=== PATIENT | female | born 1970 | race Caucasian/White ===

== ENCOUNTER 2018-06-14 11:39 | Emergency (ER) | payer OTHER, MEDICAID ==
[~2018-06-14] VITALS: Ht 165.1 cm; Wt 92.4 kg
[~2018-06-14 11:39] MED LIST: ALLOPURINOL300 MG PO; AMBIEN5 MG PO; AMOXICILLIN500 MG PO; BACTRIM DS1 TAB PO; BICILLIN L1.2 MU/SYR IM; CIPRO500 MG OR; CIPRO500 MG PO; CIPROFLOXACN500 MG PO; CLARITHROMYC500 MG PO; DIFLUCAN100 MG PO; DIFLUCAN150 MG OR; DILAUDID 2MG2 MG/TA1 PO; HYDROCHLORO25 MG/TAB PO; HYDROCO/APAP1 TA9 PO; JANUVIA100 MG PO; KLOR-CON20 MEQ PO; LISINOPRIL10 MG PO; LISINOPRIL5 MG PO; LORTAB 5 OR; MEDDOSEPAK OR; METFORMIN1000 MG PO; METFORMIN500 M1 OR; METFORMIN500 M1 PO; METFORMIN500 MG PO; NEXIUM40 M1 PO; TENORMIN25 MG OR; TENORMIN25 MG PO; TRAMADOL HCL50 MG PO; ULTRAM50 M1 PO; VALIUM2 MG PO; VESICARE10 MG PO; WELLBUTRIN SR150 MG PO; ZIAC 55 MG PO; ZOFRAN ODT4 MG PO
[2018-06-14 12:32] LABS: HEMATOCRIT 36.7 % (37.0-47.0); HEMOGLOBIN 12.1 g/dl (12.0-16.0); IMMATURE GRANULOCYTES 0.4 % (0.0-5.0); MEAN CELL VOLUME 88.2 fL CALC (80.0-100.0); MEAN CORPUSCULAR HGB 29.1 pG CALC (26.0-32.0); NEUT# 12.12 thou/uL (2.00-7.15); RED BLOOD COUNT 4.16 mill/uL (4.20-5.60); RED CELL DISTRI WIDTH 15.1 % (11.5-15.5)
[2018-06-14] MEDS ORDERED: CARVEDILOL6.25 MG PO (12:46)
[2018-06-14 12:47] LABS: ALKALINE PHOSPHATASE 74 u/l (38-126); AMYLASE 54 u/l (30-110); ANION GAP 16 (6-22 (CALC)); BILIRUBIN, TOTAL 0.7 mg/dL (0.0-1.4); BUN 10 mg/dL (7-17); BUN/CREATININE RATIO 24 (12-20 (CALC)); CARBON DIOXIDE 28 mmol/l (22-30); CHLORIDE 97 mmol/l (95-108); CREATININE 0.4 mg/dL (0.5-1.0); GFR > 60 ML/MIN (>=60 (CALC)); GFR FOR AFR.AMER. > 60 ML/MIN (>=60 (CALC)); LIPASE 35 u/l (23-300); POTASSIUM 3.6 mmol/l (3.5-5.1); SGOT/AST 26 u/l (14-36); SODIUM 137 mmol/l (137-146); TOTAL PROTEIN 7.5 g/dL (6.3-8.2)
[2018-06-14] MEDS ORDERED: NEXIUM40 M1 PO (13:52)
[2018-06-14] MEDS ORDERED: ZOFRAN8 MG PO (13:52)
[2018-06-14] MEDS ORDERED: CARAFATE1 GM/10 M1 PO (13:52)
[2018-06-14 13:57] VITALS: BP 119/73
== END 2018-06-14 14:26 | disposition home or self-care (01) | DRG 392 ==
LOC: ED 11:39
PROVIDERS: Emergency Medicine
DX: K29.00 Acute gastritis without bleeding (principal); E11.9 Type 2 diabetes mellitus without complications; Z87.442 Personal history of urinary calculi

== ENCOUNTER → 2018-09-05 | Outpatient (REF) | payer OTHER, MEDICAID ==
[~2018-09-05] MED LIST changes: +CARAFATE1 GM/10 M1 PO; +CARVEDILOL6.25 MG PO; +CELEBREX200 MG PO; +LISINOPRIL30 MG PO; +OZEMPIC2 MG/1.5 M IJ; +ZANTAC 75 PO; +ZOFRAN8 MG PO
[2018-09-05 09:38] VITALS: BP 95/71
== END | disposition home or self-care (01) | DRG 951 ==
LOC: PO 07:51 → ORM 08:00
PROVIDERS: ATTEND Surgery
DX: Z01.818 Encounter for other preprocedural examination (principal); N13.30 Unspecified hydronephrosis; R11.2 Nausea with vomiting, unspecified; K59.00 Constipation, unspecified; E11.9 Type 2 diabetes mellitus without complications; I10 Essential (primary) hypertension; K21.9 Gastro-esophageal reflux disease without esophagitis; Z90.49 Acquired absence of other specified parts of digestive tract; Z98.51 Tubal ligation status; Z98.890 Other specified postprocedural states; R14.0 Abdominal distension (gaseous); R00.0 Tachycardia, unspecified

== ENCOUNTER 2018-09-13 08:48 | Day surgery (SDC) | payer OTHER, MEDICAID ==
[~2018-09-13] VITALS: Ht 165.1 cm; Wt 85.7 kg
[2018-09-13 11:23] VITALS: BP 121/91
== END 2018-09-13 11:35 | disposition home or self-care (01) | DRG 392 ==
LOC: ENDO 08:48 → ORM 10:15 → ENDO 10:35
PROVIDERS: ATTEND Surgery
PROC: 0DB78ZX Excision of Stomach, Pylorus, Via Natural or Artificial Opening Endoscopic, Diagnostic (ICD-10-PCS; principal; 2018-09-13)
PROC: 0DBP8ZX Excision of Rectum, Via Natural or Artificial Opening Endoscopic, Diagnostic (ICD-10-PCS; 2018-09-13)
PROC: 0DBK8ZX Excision of Ascending Colon, Via Natural or Artificial Opening Endoscopic, Diagnostic (ICD-10-PCS; 2018-09-13)
PROC: 0DBH8ZX Excision of Cecum, Via Natural or Artificial Opening Endoscopic, Diagnostic (ICD-10-PCS; 2018-09-13)
DX: K29.70 Gastritis, unspecified, without bleeding (principal); K50.10 Crohn's disease of large intestine without complications; K62.1 Rectal polyp

== ENCOUNTER 2018-09-24 19:55 | Observation (INO) | payer OTHER, MEDICAID ==
[~2018-09-24] VITALS: Ht 165.1 cm; Wt 84.5 kg
--- NOTE | 2018-09-24 20:10 | NUR ---
AMBULATED TO ROOM
--- NOTE | 2018-09-24 20:11 | NUR ---
PT. TO ROOM 10 WITH C/O ABD. PAIN FOR APPROX. 3-4 DAYS. ABD. SOFT WITH + BOWEL SOUNDS.
[2018-09-24] MEDS ORDERED: DOCUSATE CAL240 MG PO (21:23)
[2018-09-24 21:26] LABS: URINE BILIRUBIN - DIPSTICK NEGATIVE (NEGATIVE); URINE BLOOD DIPSTICK MODERATE (NEGATIVE); URINE COLOR YELLOW; URINE GLUCOSE - DIPSTICK NEGATIVE (NEGATIVE); URINE KETONE NEGATIVE (NEGATIVE); URINE LEUK ESTERASE NEGATIVE (NEGATIVE); URINE NITRITE - DIPSTICK NEGATIVE (Negative); URINE PH 5.5 (4.5-8.0); URINE PROTEIN - DIPSTICK NEGATIVE (NEG-TRACE); URINE UROBILINOGEN - DIPSTICK 0.2 E.U./dL (0.2)
[2018-09-24 21:27] LABS: URINE SQUAMOUS EPITHELIAL CELL FEW EPI/hpf (0-FEW)
[2018-09-24 21:30] LABS: ALBUMIN 4.4 g/dL (3.2-5.0); ALKALINE PHOSPHATASE 82 u/l (38-126); AMYLASE 49 u/l (30-110); ANION GAP 18 (6-22 (CALC)); BILIRUBIN, TOTAL 0.4 mg/dL (0.0-1.4); BUN 11 mg/dL (7-17); BUN/CREATININE RATIO 21 (12-20 (CALC)); CARBON DIOXIDE 27 mmol/l (22-30); CHLORIDE 98 mmol/l (95-108); CREATININE 0.5 mg/dL (0.5-1.0); GFR > 60 ML/MIN (>=60 (CALC)); GFR FOR AFR.AMER. > 60 ML/MIN (>=60 (CALC)); HEMATOCRIT 38.4 % (37.0-47.0); HEMOGLOBIN 12.7 g/dl (12.0-16.0); IMMATURE GRANULOCYTES 0.3 % (0.0-5.0); LIPASE 63 u/l (23-300); MEAN CELL VOLUME 89.3 fL CALC (80.0-100.0); MEAN CORPUSCULAR HGB 29.5 pG CALC (26.0-32.0); MEAN CORPUSCULAR HGB CONC 33.1 g/L CALC (32.0-36.0); NEUT# 8.5 thou/uL (2.00-7.15); POTASSIUM 3.7 mmol/l (3.5-5.1); RED BLOOD COUNT 4.3 mill/uL (4.20-5.60); RED CELL DISTRI WIDTH 14.5 % (11.5-15.5); SGOT/AST 20 u/l (14-36); SODIUM 139 mmol/l (137-146); TOTAL PROTEIN 7.5 g/dL (6.3-8.2)
--- NOTE | 2018-09-24 21:37 | NUR ---
IVF, IV PAIN MED, PO GI COCKTAIL AND IM ANTIEMETIC GIVEN PER MD ORDER.
--- NOTE | 2018-09-24 22:37 | NUR ---
RESTING ON STRETCHER, FAMILY AT SIDE. IVF INFISING WELL, NO REDNESS OR EDEMA NOTED.
--- NOTE | 2018-09-24 23:25 | NUR ---
PT. STATES HER ABD. PAIN IS NOW DECREASED TO A 5 ON A SCALE OF 1-10.
[2018-09-25] VITALS (7 sets, daily range): BP systolic 86–120; BP diastolic 59–80
--- NOTE | 2018-09-25 00:23 | NUR ---
IN ROOM TO DISCUSS CLINICAL FINDINGS WITH PT. VERBALIZED UNDERSTANDING.
--- NOTE | 2018-09-25 00:39 | NUR ---
MD MADE PT. AWARE OF ADMISSION, VERBALIZED UNDERSTANDING.
--- NOTE | 2018-09-25 00:46 | NUR ---
IV MED GIVEN PER MD ORDER.
--- NOTE | 2018-09-25 01:00 | NUR ---
PT. STATES HER ABD. PAIN IS NOW DECREASED TO A 3 ON A SCALE OF 1-10.
--- NOTE | 2018-09-25 01:03 | NUR ---
Admission Note Report Given to: BURT CHAVEZ Transported by: Wheelchair X Stretcher Transported with: X Nurse Transporter X Patent IV [id number] Senior Attorney
--- NOTE | 2018-09-25 01:05 | NUR ---
PT. TAKEN TO MS VIA STRETCHER, NO C/O.
--- NOTE | 2018-09-25 01:30 | NUR ---
PT. ARRIVED TO THE FLOOR VIA STRETCHER ACCOMPANIED BY ER NURSE @0109; PT. AMBULATORY AND STEADY GAIT; PT. VOIDED 400MLS OF CLEAR YELLOW URINE AND STRAINED AT THIS TIME; NO STONES NOTED; IV SITE PATENT AND ORDERED IVF HUNG; PT. REPORTS PAIN DOWN TO 4/10; EDUCATED ON PAIN MEDICATION FREQUENCIES AND VERBALIZES UNDERSTANDING; TEMP REASSESSED AND IS 99.8; WILL CONTINUE TO MONITOR; EDUCATED ON POC, CALL LIGHT USE, AND ROOM; VERBALIZES UNDERSTANDING; PT. DOES C/O SORE THROAT; NO REDNESS NOTED TO THROAT; INSTRUCTED PT. TO CALL FOR ANY NEEDS; CALL LIGHT IS IN REACH; WILL CONTINUE TO MONITOR.
--- NOTE | 2018-09-25 02:00 | NUR ---
NOTIFIED ER DOCTOR THAT PT. IS C/O SORE THROAT; ORDER RECEIVED TO OBTAIN STREP SWAB; WILL CARRY OUT ORDER;
--- NOTE | 2018-09-25 04:35 | NUR ---
0430-CALLED ED DR AND NOTIFIED HIM OF PT'S B/P BEING /; NEW ORDERS RECEIVED AND TO BE CARRIED OUT. 0435- NS 1,000 ML BOLUS HUNG AT THIS TIME FOR B/P ; WILL REASSESS POST BOLUS. PT. IS ASYMPTOMATIC.
[2018-09-25 05:32] LABS: HEMATOCRIT 34.6 % (37.0-47.0); HEMOGLOBIN 11.1 g/dl (12.0-16.0); IMMATURE GRANULOCYTES 0.5 % (0.0-5.0); MEAN CELL VOLUME 90.3 fL CALC (80.0-100.0); MEAN CORPUSCULAR HGB CONC 32.1 g/L CALC (32.0-36.0); NEUT# 7.65 thou/uL (2.00-7.15); RED BLOOD COUNT 3.83 mill/uL (4.20-5.60); RED CELL DISTRI WIDTH 14.4 % (11.5-15.5)
--- NOTE | 2018-09-25 05:45 | NUR ---
NOTIFIED DR. HERNANDEZ OF B/P NOW BEING 94/62 AND OF BEING TACHYCARDIC AT 104 AND LOW GRADE TEMP NOW OF 99.1, BUT WITH IT PREVIOUSLY BEING 100; ALSO THAT PT. IS C/O ABD PAIN; NEW ORDERS RECEIVED AND TO BE CARRIED OUT; WILL UPDATE PT. WITH POC.
--- NOTE | 2018-09-25 06:13 | NUR ---
SECOND BOLUS STARTED PER ORDER; ORDERED TORADOL GIVEN FOR RIGHT SIDED ABD PAIN 4/10; WILL REASSESS; CALL LIGHT IS IN REACH.
--- NOTE | 2018-09-25 07:00 | NUR ---
SHIFT CHANGE REPORT, PT SLEEPING BUT AROUSED TO VERVAL STIMULI, ORIENTED, C/O PAIN @ 2/10 TO RIGHT SIDE, IVF INFUSING, CALL LIN IN REACH.
--- NOTE | 2018-09-25 12:04 | NUR ---
RESTING SUPINE IN BED AWAITING FOR MD TO ROUND, ALL NEEDS MET/ADDRESSED.
--- NOTE | 2018-09-25 16:36 | NUR ---
TRANSPORTED OFF UNIT VIA W/C BY VOLUNTEER FOR PROCEDURE AND RETURNED TO UNIT, RESTING IN BED AT THIS TIME, ALL NEEDS ADDRESSED, FAMILY IN ROOM.
--- NOTE | 2018-09-25 19:00 | NUR ---
RECEIVED REPORT FROM DAY NURSE. PT RESTING IN BED WATCHING TV. PT C/O PAIN AT THIS TIME. CALL LIN IN REACH. WILL CONTINUE TO MONITOR.
--- NOTE | 2018-09-25 20:10 | NUR ---
PT RESTING IN BED WATCHING TV. PT C/O PAIN 4/10 MEDICATED PER ORDER. PT IN A&O x3. AMBULATES SELF TO RESTROOM. ASSESMENT COMPLETED AT THIS TIME. IV INFUSING WELL. NO OTHER NEEDS AT THIS TIME. CALL LIN IN REACH. WILL CONTINUE TO MONITOR.
--- NOTE | 2018-09-26 00:10 | NUR ---
PT C/O PAIN, MEDICATED PER ORDER.
--- NOTE | 2018-09-26 04:00 | NUR ---
PT RESTING QUIETLY IN BED. NO S/S OF DISTRESS NOTED. CALL LIN IN REACH. WILL CONTINUE TO MONITOR.
[2018-09-26 04:25] VITALS: BP 108/72
[2018-09-26 05:35] LABS: HEMOGLOBIN 9.8 g/dl (12.0-16.0); IMMATURE GRANULOCYTES 0.3 % (0.0-5.0); MEAN CELL VOLUME 91.7 fL CALC (80.0-100.0); MEAN CORPUSCULAR HGB CONC 31.6 g/L CALC (32.0-36.0); NEUT# 4.73 thou/uL (2.00-7.15); RED BLOOD COUNT 3.38 mill/uL (4.20-5.60); RED CELL DISTRI WIDTH 14.6 % (11.5-15.5)
[2018-09-26 06:01] LABS: ALKALINE PHOSPHATASE 63 u/l (38-126); ANION GAP 13 (6-22 (CALC)); BILIRUBIN, TOTAL 0.3 mg/dL (0.0-1.4); BUN 4 mg/dL (7-17); BUN/CREATININE RATIO 9 (12-20 (CALC)); CARBON DIOXIDE 26 mmol/l (22-30); CHLORIDE 107 mmol/l (95-108); CREATININE 0.5 mg/dL (0.5-1.0); GFR > 60 ML/MIN (>=60 (CALC)); GFR FOR AFR.AMER. > 60 ML/MIN (>=60 (CALC)); LIPASE 30 u/l (23-300); MAGNESIUM 1.4 mg/dL (1.6-2.3); POTASSIUM 3.2 mmol/l (3.5-5.1); SGOT/AST 17 u/l (14-36); SODIUM 142 mmol/l (137-146)
[2018-09-26 06:07] LABS: AMYLASE < 30 u/l (30-110)
[2018-09-26 06:08] LABS: TOTAL PROTEIN 5.5 g/dL (6.3-8.2)
--- NOTE | 2018-09-26 07:15 | NUR ---
PT REPORT RECIEVED FROM YAYA SMITH. PT SLEEPING. NO S/S OF DISTRESS. CALL LIGHT IN REACH. WILL CONTINUE TO MONITOR.
[2018-09-26 09:26] VITALS: BP 104/73
--- NOTE | 2018-09-26 09:26 | NUR ---
PT A/O X3. SPEECH IS CLEAR. RESP EVEN AND UNLABORED. LUNG SOUNDS CLEAR. PRODUCTIVE COUGH NOTED; YELLOWISH/BENJAMIN THICK SPUTUM. BOWEL SOUNDS ACTIVE X4. PT C/O RT SIDED ABDOMINAL TENDERNESS. STRONG RADIAL AND PEDAL PULSES. #20 RAC NS @125. SITE APPEARS HEALTHY. SKIN INTACT. PT DENIES ANY PAIN OR NEEDS. POC DISCUSSED. SAFETY PRECAUTIONS IN PLACE. CALL LIGHT IN REACH. WILL CONTINUE TO MONITOR.
--- NOTE | 2018-09-26 10:21 | NUR ---
PT TRANSPORTED TO ULTRASOUND VIA WC IN STABLE CONDITION; ACCOMPIANED BY VOLUNTEER
--- NOTE | 2018-09-26 10:50 | NUR ---
PT TRANSPORTED BACK FROM ULTRASOUND VIA WC ACCOMPIANED BY VOLUNTEER
[2018-09-26 10:56] VITALS: BP 112/80
--- NOTE | 2018-09-26 12:04 | NUR ---
PT RESTING IN BED. NO C/O PAIN OR NEEDS. IV FLUIDS INFUSING. CALL LIGHT IN REACH. WILL CONTINUE TO MONITOR.
--- NOTE | 2018-09-26 14:10 | NUR ---
D/C INSTRUCTIONS DISCUSSED W/ PT. PT STATES UNDERSTANDING. IV REMOVED. CATHETER INTACT. PT GETTING DRESSED. SPOUSE AT BEDSIDE
--- NOTE | 2018-09-26 14:25 | NUR ---
Discharge instructions given. Patient verbalizes understanding of same. Discharged in stable condition via Wheelchair to Home with spouse. All belongings sent with pt.
== END 2018-09-26 14:25 | disposition home or self-care (01) | DRG 392 ==
LOC: ED 19:55 → ED-I 09-25 00:28 → ED 09-25 00:47 → MS2 09-25 00:48
PROVIDERS: Emergency Medicine; ADMIT Internal Medicine Nephrology; ATTEND Internal Medicine Nephrology
DX: K29.00 Acute gastritis without bleeding (principal); N13.2 Hydronephrosis with renal and ureteral calculous obstruction; K29.50 Unspecified chronic gastritis without bleeding; E11.9 Type 2 diabetes mellitus without complications; I10 Essential (primary) hypertension; M19.90 Unspecified osteoarthritis, unspecified site; Z79.899 Other long term (current) drug therapy; Z90.49 Acquired absence of other specified parts of digestive tract
CPT/HCPCS: G0378; S0164

== ENCOUNTER 2019-07-27 | Emergency (ER) | payer OTHER ==
[~2019-07-27] MED LIST changes: +DOCUSATE CAL240 MG PO
[2019-07-27] MEDS ORDERED: ZESTRIL10 M1 PO (17:45)
[2019-07-27] MEDS ORDERED: ASPIRIN 81 LOW81 MG PO (17:46)
[2019-07-27] MEDS ORDERED: HYDROCHLOROT25 MG PO (17:47)
[2019-07-27] MEDS ORDERED: CARAFATE1 G1 PO (17:48)
[2019-07-27] MEDS ORDERED: MAGNESIUM200 M1 PO (17:48)
== END 2019-07-27 19:00 | disposition home or self-care (01) | DRG 918 ==
DX: T44.5X1A Poisoning by predominantly beta-adrenoreceptor agonists, accidental (unintentional), initial encounter (principal); R20.0 Anesthesia of skin; L98.8 Other specified disorders of the skin and subcutaneous tissue; E11.9 Type 2 diabetes mellitus without complications; Z79.84 Long term (current) use of oral hypoglycemic drugs

== ENCOUNTER 2020-11-15 12:21 | Emergency (ER) | payer OTHER, MEDICAID ==
[~2020-11-15] VITALS: Ht 165.1 cm; Wt 76.8 kg
[~2020-11-15 12:21] MED LIST changes: +ASPIRIN 81 LOW81 MG PO; +CARAFATE1 G1 PO; +HYDROCHLOROT25 MG PO; +MAGNESIUM200 M1 PO; +ZESTRIL10 M1 PO
[2020-11-15 12:46] VITALS: BP 133/71
[2020-11-15 12:57] LABS: HEMATOCRIT 37.5 % (37.0-47.0); HEMOGLOBIN 11.9 g/dl (12.0-16.0); IMMATURE GRANULOCYTES 0.3 % (0.0-5.0); MEAN CELL VOLUME 86.8 fL CALC (80.0-100.0); MEAN CORPUSCULAR HGB 27.5 pG CALC (26.0-32.0); MEAN CORPUSCULAR HGB CONC 31.7 g/dL CAL (32.0-36.0); NEUT# 5.89 thou/uL (2.00-7.15); RED BLOOD COUNT 4.32 mill/uL (4.20-5.60); RED CELL DISTRI WIDTH 14.5 % (11.5-15.5)
[2020-11-15 13:23] LABS: ALBUMIN 4.2 g/dL (3.2-5.0); ALKALINE PHOSPHATASE 77 u/l (38-126); AMYLASE 69 u/l (30-110); ANION GAP 15 (6-22 (CALC)); BILIRUBIN, TOTAL 0.3 mg/dL (0.0-1.4); BUN 14 mg/dL (7-17); BUN/CREATININE RATIO 22 (12-20 (CALC)); CARBON DIOXIDE 26 mmol/l (22-30); CHLORIDE 99 mmol/l (95-108); CREATININE 0.7 mg/dL (0.5-1.0); GFR > 60 ML/MIN (>=60 (CALC)); GFR FOR AFR.AMER. > 60 ML/MIN (>=60 (CALC)); LIPASE 66 u/l (23-300); POTASSIUM 3.5 mmol/l (3.5-5.1); SGOT/AST 25 u/l (14-36); SODIUM 137 mmol/l (137-146); TOTAL PROTEIN 7.4 g/dL (6.3-8.2)
[2020-11-15 14:30] LABS: URINE BILIRUBIN - DIPSTICK NEGATIVE (NEGATIVE); URINE BLOOD DIPSTICK NEGATIVE (NEGATIVE); URINE COLOR YELLOW; URINE GLUCOSE - DIPSTICK NEGATIVE (NEGATIVE); URINE KETONE NEGATIVE (NEGATIVE); URINE LEUK ESTERASE NEGATIVE (NEGATIVE); URINE PROTEIN - DIPSTICK NEGATIVE (NEG-TRACE); URINE UROBILINOGEN - DIPSTICK 0.2 E.U./dL (0.2)
[2020-11-15 14:39] LABS: URINE NITRITE - DIPSTICK NEGATIVE (Negative)
[2020-11-15] MEDS ORDERED: MIRALAX17 GM PO (15:38)
[2020-11-15] MEDS ORDERED: ONDANSETRON4 MG PO (15:38)
== END 2020-11-15 16:00 | disposition home or self-care (01) | DRG 392 ==
LOC: ED 12:21
PROVIDERS: Emergency Medicine
DX: K59.00 Constipation, unspecified (principal); E11.9 Type 2 diabetes mellitus without complications; Z79.84 Long term (current) use of oral hypoglycemic drugs; Z87.442 Personal history of urinary calculi

== ENCOUNTER 2021-01-24 09:37 | Emergency (ER) | payer OTHER, MEDICAID ==
[~2021-01-24 09:37] MED LIST changes: +MIRALAX17 GM PO; +ONDANSETRON4 MG PO
[2021-01-24 12:12] VITALS: BP 112/70
== END 2021-01-24 12:23 | disposition home or self-care (01) | DRG 605 ==
LOC: ED 09:37
DX: S80.212A Abrasion, left knee, initial encounter (principal); M25.572 Pain in left ankle and joints of left foot; R04.0 Epistaxis; K13.79 Other lesions of oral mucosa; E11.9 Type 2 diabetes mellitus without complications; W01.0XXA Fall on same level from slipping, tripping and stumbling without subsequent striking against object, initial encounter; Y92.512 Supermarket, store or market as the place of occurrence of the external cause; Z79.84 Long term (current) use of oral hypoglycemic drugs

== ENCOUNTER 2021-01-28 17:46 | Emergency (ER) | payer OTHER, MEDICAID ==
[2021-01-28 21:30] VITALS: BP 123/79
== END 2021-01-28 21:30 | disposition home or self-care (01) | DRG 951 ==
LOC: ED 17:46
DX: Z20.822 Contact with and (suspected) exposure to COVID-19 (principal); E11.9 Type 2 diabetes mellitus without complications; Z79.84 Long term (current) use of oral hypoglycemic drugs

== ENCOUNTER 2023-03-21 08:50 | Day surgery (SDC) | payer OTHER, MEDICAID ==
[~2023-03-21] VITALS: Ht 165.1 cm; Wt 64.9 kg
[~2023-03-21 08:50] MED LIST changes: +BACLOFEN10 MG PO; +DICYCLOMINE HCL20 MG PO; -METFORMIN1000 MG PO; +METFORMIN500 M2 PO; +TRAZODONE50 MG PO
[2023-03-21 13:32] VITALS: BP 126/89
== END 2023-03-21 12:05 | disposition home or self-care (01) | DRG 395 ==
LOC: ORM 08:50
PROVIDERS: ATTEND Internal Medicine Gastroenterology
PROC: 0DBH8ZX Excision of Cecum, Via Natural or Artificial Opening Endoscopic, Diagnostic (ICD-10-PCS; principal; 2023-03-21)
PROC: 0DBE8ZX Excision of Large Intestine, Via Natural or Artificial Opening Endoscopic, Diagnostic (ICD-10-PCS; 2023-03-21)
PROC: 0DBB8ZX Excision of Ileum, Via Natural or Artificial Opening Endoscopic, Diagnostic (ICD-10-PCS; 2023-03-21)
PROC: 0DB98ZX Excision of Duodenum, Via Natural or Artificial Opening Endoscopic, Diagnostic (ICD-10-PCS; 2023-03-21)
PROC: 0DB78ZX Excision of Stomach, Pylorus, Via Natural or Artificial Opening Endoscopic, Diagnostic (ICD-10-PCS; 2023-03-21)
DX: D12.0 Benign neoplasm of cecum (principal); K64.8 Other hemorrhoids; K29.50 Unspecified chronic gastritis without bleeding; I10 Essential (primary) hypertension; E78.5 Hyperlipidemia, unspecified; E11.9 Type 2 diabetes mellitus without complications; Z86.010 Personal history of colon polyps; Z79.85 Long-term (current) use of injectable non-insulin antidiabetic drugs

== ENCOUNTER 2024-04-02 08:30 | Day surgery (SDC) | payer OTHER, MEDICAID ==
[~2024-04-02] VITALS: Ht 165.1 cm; Wt 72.1 kg
[~2024-04-02 08:30] MED LIST changes: +AMITIZA24 MCG PO; +GABAPENTIN100 MG PO; +GABAPENTIN300 M2 PO; +KLOR-CON M1010 MEQ PO; +METHOCARBAMOL500 MG PO; +MOUNJARO7.5 MG SC; +NAPROXEN500 MG PO; +VOLTAREN75 MG PO
[2024-04-02] MEDS ORDERED: SODIUM CHLORIDE 0.9% 1,000 ML IV ONE (08:35)
[2024-04-02] MEDS ORDERED: FAMOTIDINE 10MG/ML 2ML SDV IV ONE (08:35)
[2024-04-02 10:00] VITALS: BP 133/90
[2024-04-02] MEDS ORDERED: KETOROLAC TROMETHAMINE 30 MG/ML SDV IV ONE (13:50)
[2024-04-02] MEDS ORDERED: PROPOFOL 200 MG/20 ML VIAL IV ONE (13:50)
[2024-04-02] MEDS ORDERED: LIDOCAINE HCL 2% 2ML SDV IV ONE (13:50)
== END 2024-04-02 10:15 | disposition home or self-care (01) | DRG 951 ==
LOC: ENDO 08:30 → ORM 15:10
PROVIDERS: ATTEND Internal Medicine Gastroenterology
PROC: 0DJD8ZZ Inspection of Lower Intestinal Tract, Via Natural or Artificial Opening Endoscopic (ICD-10-PCS; principal; 2024-04-02)
DX: Z09 Encounter for follow-up examination after completed treatment for conditions other than malignant neoplasm (principal); K64.8 Other hemorrhoids; K58.1 Irritable bowel syndrome with constipation; I10 Essential (primary) hypertension; E78.5 Hyperlipidemia, unspecified; Z86.0101 Personal history of adenomatous and serrated colon polyps